=== PATIENT | female | born 1975 | race Caucasian/White ===

== ENCOUNTER 2017-04-04 17:18 | Emergency (ER) | payer OTHER ==
[2017-04-04] MEDS ORDERED: Ciprofloxacin 500 MG Tab ONE (17:30)
--- NOTE | 2017-04-04 17:52 | EDM.PDOC ---
ED HPI GENERAL MEDICAL PROBLEM - General Chief Complaint: General Stated Complaint: shaking uncontrollably Time Seen by Provider: 04/04/17 17:30 Source of Information: Reports: Patient History Limitations: Reports: No Limitations - History of Present Illness INITIAL COMMENTS - FREE TEXT/NARRATIVE: According to , patient and her family was getting ready to go out to have dinner. She just had a small glass of wine. Patient started to feel cold and chills and asked for a blanket and soon pt was shaking and was hyperventilating and her hands and feet started to go numb. she felt nauseous. No chest pain or chest tightness, but felt her heart racing. Hence patient was brought into the emergency room. Pt is hyperventilating and anxious. Pt claims that she takes diflucan one tab every week for her recurrent vaginal candidiasis and she feels that she has dysuria and possible UTI now. No back pain. No headache, no vomiting. Onset: Today Onset Date: 04/04/17 Onset Time: 17:00 Severity: Moderate Improves with: Reports: None Worsens with: Reports: None Associated Symptoms: Reports: Diaphoresis, Headaches, Nausea/Vomiting, Shortness of Breath. Denies: Confusion, Chest Pain, Cough, Fever/Chills, Rash, Seizure, Syncope - Related Data Allergies Allergy/AdvReac Type Severity Reaction Status Date / Time sulfamethoxazole Allergy Cannot Verified 04/04/17 17:50 [From Bactrim] Remember trimethoprim [From Bactrim] Allergy Cannot Verified 04/04/17 17:50 Remember Home Meds: Home Meds Zolpidem [Ambien] 5 mg PO BEDTIME PRN 04/04/17 [History] ED ROS GENERAL - Review of Systems Review Of Systems: See Below Constitutional: Denies: Fever, Chills, Malaise, Fatigue, Night Sweats HEENT: Denies: Rhinitis, Sinus Problem, Throat Pain, Throat Swelling Respiratory: Reports: Shortness of Breath. Denies: Wheezing, Pleuritic Chest Pain, Cough, Sputum Cardiovascular: Reports: Lightheadedness. Denies: Chest Pain GI/Abdominal: Reports: Nausea. Denies: Abdominal Pain, Vomiting : Reports: Dysuria. Denies: Flank Pain, Frequency, Hematuria Musculoskeletal: Denies: Joint Pain, Joint Swelling ED EXAM, GENERAL - Physical Exam Exam: See Below Exam Limited By: No Limitations General Appearance: Alert, WD/WN, No Apparent Distress, Anxious, Other ( Hyperventilating) Eye Exam: Bilateral Eye: EOMI, PERRL Ears: Normal External Exam, Normal Canal, Hearing Grossly Normal, Normal TMs Ear Exam: Bilateral Ear: Auricle Normal, Canal Normal, TM normal Nose: Normal Inspection, Normal Mucosa, No Blood Throat/Mouth: Normal Inspection, Normal Lips, Normal Teeth, Normal Gums, Normal Oropharynx, Normal Voice, No Airway Compromise Head: Atraumatic, Normocephalic Neck: Normal Inspection, Supple, Non-Tender, Full Range of Motion Respiratory/Chest: No Respiratory Distress, Lungs Clear, Normal Breath Sounds, No Accessory Muscle Use, Chest Non-Tender Cardiovascular: Normal Peripheral Pulses, Regular Rate, Rhythm, No Edema, No Gallop, No JVD, No Murmur, No Rub GI/Abdominal: Normal Bowel Sounds, Soft, Non-Tender, No Organomegaly, No Distention, No Abnormal Bruit, No Mass Back Exam: Normal Inspection, Full Range of Motion, NT Extremities: Normal Inspection, Normal Range of Motion, Non-Tender, Normal Capillary Refill, No Pedal Edema Neurological: Alert, Oriented, CN II-XII Intact, Normal Cognition, Normal Gait, Normal Reflexes, No Motor/Sensory Deficits Psychiatric: Anxious Skin Exam: Warm, Intact EKG INTERPRETATION EKG Date: 04/04/17 Rhythm: NSR Rate (Beats/Min): 112 [place]: Normal P-Wave: Present QRS: Normal ST-T: Normal QT: Normal (she is in sinus tachycardia) Course - Vital Signs Text/Narrative:: Pt is hyperventilating in the emergency room. She was given paper bag to rebreath. Her vitals are stable other than tachycardia. her SPO 2is 100% on room air. With paper bag rebreathing, her symptoms did improve. Her CBC is normal. EKG in sinus tachycardia.Her BMP shows normal electrolyte and her CO2 is low and Calcium is slightly low consistent with hyperventilating. Pt did receive ativan 1mg Im. Pt has been running a temp since she has been in the emergency room, Also she claims she has been having dysuria today, Hence UA was ordered.Pt's UA shows large leucs with clumps off WBC. Pt has acute UTI. Pt and her reassured. Pt advised plenty of fluids. Tylenol every 4-6 hrs as needed for fever.Rest and hydration. Cipro 500mg twice daily for 7 days. Will send urine culture and followup with results. Followup with her primary care provider early next week. Last Recorded V/S: Last Vital Signs Temp 103 F H 04/04/17 18:30 Pulse 111 H 04/04/17 18:30 Resp 16 04/04/17 18:30 BP 106/68 04/04/17 18:30 Pulse Ox 100 04/04/17 17:25 - Orders/Labs/Meds Orders: Active Orders 24 hr Category Date Time Status EKG Documentation Completion [RC] ASDIRECTED Care 04/04/17 17:54 Ordered EKG 12 Lead [EK] Routine Ther 04/04/17 17:52 Ordered Labs: Laboratory Tests 04/04/17 04/04/17 04/04/17 Range/Units 17:45 17:45 18:11 WBC 6.5 (4.0-11.0) K/uL RBC 4.26 (3.80-5.80) M/uL Hgb 13.0 (11.5-16.5) g/dL Hct 38.1 (37.0-47.0) % MCV 89 (76-96) fL MCH 30.5 (27.0-32.0) pg MCHC 34.1 (31.0-35.0) g/dL RDW 12.7 (11.0-16.0) % Plt Count 201 (150-500) K/uL MPV 11.3 H (6.0-10.0) fL Neut % (Auto) 82.2 H (45.0-70.0) % Lymph % (Auto) 16.9 L (20.0-40.0) % [place] % (Auto) 0.3 L (3.0-10.0) % Eos % (Auto) 0.6 L (1.0-5.0) % Baso % (Auto) 0.0 (0.0-0.5) % Neut # (Auto) 5.31 (2.00-7.50) K/uL Lymph # (Auto) 1.09 L (1.50-4.00) K/uL [place] # (Auto) 0.02 L (0.20-0.80) K/uL Eos # (Auto) 0.04 (0.04-0.40) K/uL Baso # (Auto) 0.00 L (0.02-0.10) K/uL Sodium 141 (136-145) mmol/L Potassium 4.0 (3.5-5.1) mmol/L Chloride 105 (98-107) mmol/L Carbon Dioxide 20.3 L (21.0-32.0) mmol/L Anion Gap 19.7 H (5.0-15.0) mmol/L BUN 18 (8-26) mg/dL Creatinine 0.90 (0.55-1.02) mg/dL Est Cr Clr Drug Dosing 67.36 mL/min Estimated GFR (MDRD) > 60 (>60) MLS/MIN BUN/Creatinine Ratio 20.0 (6-25) Glucose 77 (74-100) mg/dL Calcium 8.3 L (8.5-10.1) mg/dL Total Bilirubin 0.3 (0.0-1.0) mg/dL AST 13 L (15-37) U/L ALT 17 (12-78) U/L Alkaline Phosphatase 84 (46-116) U/L Total Protein 7.4 (6.4-8.2) g/dL Albumin 3.4 (3.4-5.0) g/dL Globulin 4.0 (2.2-4.2) g/dL Albumin/Globulin Ratio 0.9 (0.8-2.0) Urine Color Yellow Urine Appearance Clear (CLEAR) Urine pH 6.0 (5.0-8.0) Ur Specific [place] 1.015 (1.003-1.030) Urine Protein 30 H (NEGATIVE) mg/dL Urine Glucose (UA) Negative (NEGATIVE) mg/dL Urine Ketones Negative (NEGATIVE) mg/dL Urine Occult Blood Trace-lysed H (NEGATIVE) Urine Nitrite Negative (NEGATIVE) Urine Bilirubin Negative (NEGATIVE) Urine Urobilinogen 0.2 (0.2-1.0) E.U./dL Ur Leukocyte Esterase Large H (NEGATIVE) Urine RBC Not seen /HPF Urine WBC Semi-packed H /HPF Urine WBC Clumps Few /HPF Ur Squamous Epith Cells Few /HPF Urine Bacteria Few /HPF Meds: Medications Discontinued Medications Generic Name Dose Route Start Last Admin Trade Name Freq PRN Reason Stop Dose Admin Acetaminophen 650 mg 04/04/17 18:29 Tylenol PO 04/04/17 18:30 NOW ONE Lorazepam 1 mg 04/04/17 18:29 Ativan IM 04/04/17 18:30 ONETIME ONE Departure - Departure Time of Disposition: 06:40 Disposition: Home, Self-Care 01 Condition: Good Clinical Impression: Hyperventilation syndrome, UTI (urinary tract infection) - Discharge Information Instructions: Urinary Tract Infection, Adult Forms: ED Department Discharge Additional Instructions: Drink plenty of fluids and cranberry juice. Take the Cipro for 7 days. You may also use tylenol and motrin for comfort. - Problem List & Annotations (1) Hyperventilation syndrome SNOMED Code(s): 696613708 Code(s): F45.8 - OTHER [employer] DISORDERS Status: Acute (2) UTI (urinary tract infection) SNOMED Code(s): 86556731 Code(s): N39.0 - URINARY TRACT INFECTION, SITE NOT SPECIFIED Status: Acute - Problem List Review Problem List Initiated/Reviewed/Updated: Yes - My Orders Last 24 Hours: My Active Orders 04/04/17 17:52 EKG 12 Lead [EK] Routine 04/04/17 17:54 EKG Documentation Completion [RC] ASDIRECTED - Assessment/Plan Last 24 Hours: My Active Orders 04/04/17 17:52 EKG 12 Lead [EK] Routine 04/04/17 17:54 EKG Documentation Completion [RC] ASDIRECTED Assessment:: Hyperventilation with anxiety UTI Plan: Pt is hyperventilating in the emergency room. She was given paper bag to rebreath. Her vitals are stable other than tachycardia. her SPO 2is 100% on room air. With paper bag rebreathing, her symptoms did improve. Her CBC is normal. EKG in sinus tachycardia.Her BMP shows normal electrolyte and her CO2 is low and Calcium is slightly low consistent with hyperventilating. Pt has been running a temp since she has been in the emergency room, Also she claims she has been having dysuria today, Hence UA was ordered.Pt's UA shows large leucs with clumps off WBC. Pt has acute UTI. Pt and her reassured. Pt advised plenty of fluids. Tylenol every 4-6 hrs as needed for fever.Rest and hydration. Cipro 500mg twice daily for 7 days. Will send urine culture and followup with results. Followup with her primary care provider early next week.
[2017-04-04] MEDS ORDERED: Acetaminophen 325 MG Tab PO ONE (18:29)
[2017-04-04] MEDS ORDERED: LORazepam 2 MG/ML MDV IM ONE (18:29)
== END 2017-04-04 18:43 | disposition home or self-care (01) ==
LOC: LB.ED 17:18
DX: F45.8 Other somatoform disorders (principal); F41.9 Anxiety disorder, unspecified; N39.0 Urinary tract infection, site not specified; Z88.2 Allergy status to sulfonamides; Z88.1 Allergy status to other antibiotic agents
CPT/HCPCS: 36415; 80053; 81001; 85025; 87086; 87186; 93005; 96372; 99283; A9270; J2060